=== PATIENT | female | born 1975 | race Caucasian/White ===

== ENCOUNTER 2017-04-13 15:00 | Emergency (ER) | payer OTHER ==
[~2017-04-13] VITALS: Ht 175.3 cm; Wt 71.3 kg
[~2017-04-13 15:00] MED LIST: PRED20 PO; VENTAER INH
[2017-04-13 15:06] VITALS: BP 95/62; PULSE 74; RESP 16; TEMP 98.2; O2SAT 97
[2017-04-13] MEDS ORDERED: KETOROLAC TROMETHAMINE 60 MG/2 ML (IM) VIAL IM ONE (15:30)
[2017-04-13] MEDS ORDERED: ORPHENADRINE INJ 60 MG/2 ML AMP IM ONE (15:30)
--- NOTE | 2017-04-13 15:43 | PD ---
HPI . Right upper back pain Chief Complaint: Musculoskeletal Complaint Time Seen by Provider: 15:31 Travel History International Travel<30 days: No Contact w/Intl Traveler<30days: No Traveled to known affect area: No History of Present Illness HPI 42-year-old female presents to emergency department for evaluation of right upper back pain that she woke up with this morning. Patient denies any trauma or injury. Patient states she thought she slept funny and it would resolve throughout the day. Patient took an Advil this morning to relieve the pain. Patient states that Advil was effective but is wearing off at this time. Patient denies any other physiological symptoms. Patient denies chest pain, fever, cough, chills, malaise or lightheadedness. The pain does not limit her range of motion. Patient states the only relieving factor besides the Motrin is stretching. Patient denies any major medical history. She is not currently on any medications. She has no known allergies. PFSH Past Medical History Anxiety: Yes Diminished Hearing: No Tetanus Vaccination: Unknown Influenza Vaccination: Yes ?: Not LMP: 04/10/2017 Past Surgical History Abdominal Surgery: Yes (ABDOMINOPLASTY) Section: Yes (2) Eye Surgery: Yes (PRK) Gynecologic Surgery: Yes (2 C-SECTIONS) Social History Alcohol Use: Yes (OCCAS) Tobacco Use: No Substance Use: No Allergies-Medications (Allergen,Severity, Reaction): Coded Allergies: No Known Allergies (Unverified , 04/13/17) Reported Meds & Prescriptions Reported Meds & Active Scripts Active Ventolin Hfa (Albuterol Sulfate) 18 Gm Aero 2 Puff INH Q6 * SHAKE WELL BEFORE USE * Deltasone (Prednisone) 20 Mg Tab 20 Mg PO DAILY Review of Systems Except as stated in HPI: all other systems reviewed are Neg Musculoskeletal: Positive: Pain (right upper back pain) Physical Exam Narrative GENERAL: Well-nourished, well-developed 42-year-old female patient in no acute distress. Nontoxic appearing. SKIN: Focused skin assessment warm/dry. HEAD: Normocephalic. Atraumatic EYES: No scleral icterus. No injection or drainage. NECK: Supple, trachea midline. No JVD or lymphadenopathy. CARDIOVASCULAR: Regular rate and rhythm without murmurs, gallops, or rubs. RESPIRATORY: Breath sounds equal bilaterally. No accessory muscle use. MUSCULOSKELETAL: Increased tension on the right lateral aspect of the trapezius muscle noted. No cyanosis, or edema. BACK: Nontender without obvious deformity. No CVA tenderness. Data Data Last Documented VS Vital Signs Date Time Temp Pulse Resp B/P (MAP) Pulse Ox O2 Delivery O2 Flow Rate FiO2 04/13/17 15:06 98.2 74 16 95/62 (73) 97 Orders Orders Orphenadrine Inj (Norflex Inj) (04/13/17 15:30) Ketorolac Inj (Toradol Inj) (04/13/17 15:30) [facility] Medical Decision Making Medical Screen Exam Complete: Yes Emergency Medical Condition: Yes Differential Diagnosis Differential diagnoses include but not limited to muscle spasms, muscular contusion to upper back, muscle cramp in upper back Narrative Course Well-nourished well-developed 42-year-old female presents to the emergency department with complaint of pain to upper back that she woke up with. She denies any trauma or injury. Patient thought she slept in a different position that caused the pain. There is increased tension noted to the right lateral aspect of the trapezius muscle in the upper back. However the tension does not decreased range of motion. Patient states the pain is improved with stretching. Based on patient's symptoms, clinical presentation, vital sign review and physical exam it is not necessary to admit the patient to the hospital or keep the patient in the emergency department for further evaluation. Patient will be discharged home. Patient will be given 60 mg IM orphenadrine and 30 mg IM ketorolac and discharged home. Patient will be given instructions to continue stretching, use heat therapy, stay hydrated and use [id number] Motrin. Diagnosis Primary Impression: Upper back pain on right side Referrals: Primary Care Physician Patient Instructions: Back Pain (ED), General Instructions Additional Instructions: Please return to emergency department if your symptoms return or worsen. Follow up with your primary care provider. May use heating pads for 20 minutes on and 20 minutes off. May use [id number] Motrin as needed for pain. Disposition: 01 DISCHARGE HOME Condition: Stable America Keller JT Apr 13, 2017 15:43
== END 2017-04-13 15:56 | disposition home or self-care (01) ==
LOC: PHEFT 15:00
DX: M54.89 Other dorsalgia (principal); F41.9 Anxiety disorder, unspecified
CPT/HCPCS: 96372; 99284; J1885; J2360

== ENCOUNTER 2017-07-11 15:49 | Emergency (ER) | payer OTHER ==
[~2017-07-11] VITALS: Ht 172.7 cm; Wt 71.8 kg
[2017-07-11 15:55] VITALS: BP 99/56; PULSE 89; RESP 18; TEMP 99.4; O2SAT 94
[2017-07-11] MEDS ORDERED: EPINEPHrine HCL (1:1000) 1 MG/ML VIAL ONE (15:55)
[2017-07-11] MEDS ORDERED: EPINEPHrine HCL (1:1000) 1 MG/ML VIAL IM ONE (16:00)
[2017-07-11] MEDS ORDERED: FAMOTIDINE 20 MG/2 ML VIAL IV PUSH ONE (16:00)
[2017-07-11] MEDS ORDERED: methylPREDNISolone SOD SUCC 125 MG/2 ML VIAL IV PUSH ONE (16:00)
[2017-07-11] MEDS ORDERED: diphenhydrAMINE HCL 50 MG/ML VIAL IVP ONE (16:00)
[2017-07-11] MEDS: SODIUM CHLORIDE 0.9% FLUSH 10 ML FLUSH IV FLUSH PRN ×2 (16:02→17:27)
[2017-07-11 16:09] VITALS: O2SAT 99
[2017-07-11] MEDS ORDERED: VENL75XR PO (16:16)
[2017-07-11 16:49] VITALS: BP 94/55; PULSE 92; RESP 18; O2SAT 98
--- NOTE | 2017-07-11 16:54 | PD ---
HPI Chief Complaint: Allergic/Adverse Reaction Time Seen by Provider: 15:54 Travel History International Travel<30 days: No Contact w/Intl Traveler<30days: No Traveled to known affect area: No History of Present Illness HPI 42-year-old female came to the emergency room with history of allergic reaction. Patient says that she has been noticing hives that are itchy all over her body since past 4-5 days. She is unsure of the reason of these hives. She is on Venlafaxine but has been taking it for past 4 months. The symptoms has not started to past 4-5 days ago. Today she noticed that her lips and started to swell up and around her eyes. She also started feeling some itchiness of the back of her throat when she decided to come to the emergency room. Patient had taken 50 mg of Benadryl prior to coming in. She was slightly hypertensive upon arrival. No history of cough or chest tightness. PFSH Past Medical History Narrative Medical List of her past medical, surgical, social and family history is reviewed from the nursing note. Anxiety: Yes Diminished Hearing: No ?: Not Past Surgical History Abdominal Surgery: Yes (ABDOMINOPLASTY) Section: Yes (2) Eye Surgery: Yes (PRK) Gynecologic Surgery: Yes (2 C-SECTIONS) Social History Alcohol Use: Yes (OCCAS) Tobacco Use: No Substance Use: No Allergies-Medications (Allergen,Severity, Reaction): Coded Allergies: No Known Allergies (Unverified Adverse Reaction, Unknown, 07/11/17) Comments No known drug allergies. Reported Meds & Prescriptions Reported Meds & Active Scripts Active Benadryl Allergy (Diphenhydramine HCl) 25 Mg Cap 1 Cap PO Q6HR 3 Days Prednisone 20 Mg Tab 20 Mg PO BID 5 Days Reported Effexor XR 24 HR (Venlafaxine HCl) 75 Mg Cap 75 Mg PO DAILY Narrative Medication List of her home medications reviewed from the nursing note. Review of Systems Except as stated in HPI: all other systems reviewed are Neg Physical Exam Narrative GENERAL: Awake, alert, moderate distress SKIN: Focused skin assessment warm/dry. HEAD: Atraumatic. Normocephalic. EYES: Pupils equal and round. No scleral icterus. No injection or drainage. ENT: No nasal bleeding or discharge. Mucous membranes pink and moist. Angioedema of her lower lips and bilateral medial canthus. Posterior pharynx and soft palate appears to be erythematous and slightly swollen. NECK: Trachea midline. No JVD. No stridor CARDIOVASCULAR: Regular rate and rhythm. No murmur appreciated. RESPIRATORY: No accessory muscle use. Clear to auscultation. Breath sounds equal bilaterally. GASTROINTESTINAL: Abdomen soft, non-tender, nondistended. Hepatic and splenic margins not palpable. MUSCULOSKELETAL: No obvious deformities. No clubbing. No cyanosis. No edema. NEUROLOGICAL: Awake and alert. No obvious cranial nerve deficits. Motor grossly within normal limits. Normal speech. PSYCHIATRIC: Appropriate mood and affect; insight and judgment normal. Data Data Last Documented VS Orders Orders Ecg Monitoring (07/11/17 15:54) Iv Access Insert/Monitor (07/11/17 15:54) Oximetry (07/11/17 15:54) Diphenhydramine Inj (Benadryl Inj) (07/11/17 16:00) Methylprednisolone So Succ Inj (Solumedr (07/11/17 16:00) Famotidine Inj (Pepcid Inj) (07/11/17 16:00) Sodium Chloride 0.9% Flush (Ns Flush) (07/11/17 16:00) Epinephrine (1:1000) Inj (Adrenalin (1:1 (07/11/17 16:00) Epinephrine (1:1000) Inj (Adrenalin (1:1 (07/11/17 15:55) Sodium Chlor 0.9% 1000 Ml Inj (Ns 1000 M (07/11/17 17:45) MDM Medical Decision Making Medical Screen Exam Complete: Yes Emergency Medical Condition: Yes Medical Record Reviewed: Yes Interpretation(s) Twelve-lead EKG was reviewed by me. Normal sinus rhythm, normal axis, nonspecific ST-T wave changes. Heart rate of 84 bpm. Differential Diagnosis Allergic reaction, injured his Narrative Course 5:39 PM given her severity of the upper airway reaction I chose to give her epinephrine along with IV Benadryl, Solu-Medrol and famotidine. Currently patient feels much better. I will observe her for another hour and then discharged if she continues to do okay. Procedures EKG Prior to Arrival: No Diagnosis Primary Impression: Allergic reaction Qualified Codes: T78.40XA - Allergy, unspecified, initial encounter Additional Impression: Angioedema Qualified Codes: T78.3XXA - Angioneurotic edema, initial encounter Referrals: Primary Care Physician 2 days Additional Instructions: Please return to the ER if the condition worsens or any other new concerns. Otherwise follow-up with your primary care and have them refer you to an oil program compliance specialist so that skin the skin be done to find out exactly which is allergic to. Also talked to the physician who started you on Venlafaxine so that a different medication can be started on. Med/Other Pt SpecificInfo: Prescription(s) given Scripts Diphenhydramine HCl (Benadryl Allergy) 25 Mg Cap 1 CAP PO Q6HR for 3 Days Prov: Sully Jang MD 07/11/17 Prednisone (Prednisone) 20 Mg Tab 20 MG PO BID for 5 Days, #10 TAB 0 Refills Prov: Sully Jang MD 07/11/17 Disposition: 01 DISCHARGE HOME Condition: Stable Sully Jang MD Jul 11, 2017 16:54
[2017-07-11] MEDS ORDERED: BENA25CA4 PO (17:42)
[2017-07-11] MEDS ORDERED: PRED20 PO (17:42)
[2017-07-11] MEDS ORDERED: SODIUM CHLOR 0.9% 1000 ML INJ 1,000 ML IV ONE (17:45)
[2017-07-11 19:15] VITALS: BP_SYST 157; BP_SYST 94; BP_DIAS 61; BP_DIAS 87
== END 2017-07-11 19:39 | disposition home or self-care (01) ==
LOC: PHED 15:49
DX: T78.40XA Allergy, unspecified, initial encounter (principal); T78.3XXA Angioneurotic edema, initial encounter; I10 Essential (primary) hypertension; F41.9 Anxiety disorder, unspecified
CPT/HCPCS: 96361; 96372; 96374; 96375; 99284; J0171; J1200; J2930; J7030

== ENCOUNTER 2017-07-19 12:41 | Emergency (ER) | payer OTHER ==
[~2017-07-19 12:41] MED LIST changes: +BENA25CA4 PO; +VENL75XR PO; -VENTAER INH
[2017-07-19 12:46] VITALS: BP 98/71; PULSE 95; RESP 16; TEMP 98.5; O2SAT 100
[2017-07-19] MEDS ORDERED: SODIUM CHLOR 0.9% 1000 ML INJ 1,000 ML IV SCH (13:42)
[2017-07-19] MEDS ORDERED: methylPREDNISolone SOD SUCC 125 MG/2 ML VIAL IV PUSH ONE (13:45)
[2017-07-19] MEDS ORDERED: EPINEPHrine HCL (1:1000) 1 MG/ML VIAL IM ONE (13:45)
[2017-07-19] MEDS ORDERED: FAMOTIDINE 20 MG/2 ML VIAL IV PUSH ONE (13:45)
[2017-07-19] MEDS ORDERED: SODIUM CHLORIDE 0.9% FLUSH 10 ML FLUSH IV FLUSH PRN (13:45)
[2017-07-19] MEDS ORDERED: diphenhydrAMINE HCL 50 MG/ML VIAL IVP ONE (13:45)
[2017-07-19 14:07] VITALS: BP 86/58; PULSE 77; RESP 16; O2SAT 98
[2017-07-19 14:09] VITALS: O2SAT 98
--- NOTE | 2017-07-19 14:12 | PD ---
HPI Chief Complaint: Allergic/Adverse Reaction Time Seen by Provider: 13:42 Travel History International Travel<30 days: No Contact w/Intl Traveler<30days: No Traveled to known affect area: No History of Present Illness HPI 42-year-old female patient with recent history of allergic reaction to Effexor, presents back to the ER today because she states that she was eating pasta when she started getting lip swelling, facial swelling, and feels that there is a lump in her throat. She denies any chest pains, shortness of breath, or any other symptoms. She states that this is similar to the reaction she had last week. She denies any previous history of allergic reaction to pasta. Modifying Factors: None Associated Signs & Symptoms: Allergic reaction Risk Factors: Recent history of allergic reaction PFSH Past Medical History Anxiety: Yes Diminished Hearing: No ?: Not LMP: 07/19/17 Past Surgical History Abdominal Surgery: Yes (ABDOMINOPLASTY) Section: Yes (2) Eye Surgery: Yes (PRK) Gynecologic Surgery: Yes (2 C-SECTIONS) Social History Alcohol Use: Yes (OCCAS) Tobacco Use: No Substance Use: No Allergies-Medications (Allergen,Severity, Reaction): Coded Allergies: No Known Allergies (Verified Adverse Reaction, Unknown, 07/19/17) Reported Meds & Prescriptions Reported Meds & Active Scripts Active Review of Systems Except as stated in HPI: all other systems reviewed are Neg Physical Exam Narrative GENERAL: Well-developed middle age female patient currently in mild distress. Awake and oriented 3. SKIN: Focused skin assessment warm/dry. HEAD: Atraumatic. Normocephalic. There is notable lip edema. EYES: Pupils equal and round. No scleral icterus. No injection or drainage. ENT: Mucosa pink and moist. No erythema or exudates. No uvular edema. No uvular , palatal, or tonsillar deviation. Airway patent. NECK: Trachea midline. No JVD. No obvious edema or swelling. CARDIOVASCULAR: Regular rate and rhythm. No murmur appreciated. RESPIRATORY: No accessory muscle use. Clear to auscultation. Breath sounds equal bilaterally. No wheezing. GASTROINTESTINAL: Abdomen soft, non-tender, nondistended. Hepatic and splenic margins not palpable. MUSCULOSKELETAL: No obvious deformities. No clubbing. No cyanosis. No edema. NEUROLOGICAL: Awake and alert. No obvious cranial nerve deficits. Motor grossly within normal limits. Normal speech. PSYCHIATRIC: Appropriate mood and affect; insight and judgment normal. Data Data Last Documented VS Vital Signs Date Time Temp Pulse Resp B/P (MAP) Pulse Ox O2 Delivery O2 Flow Rate FiO2 07/19/17 15:10 87 16 91/54 (66) 98 Room Air 07/19/17 12:46 98.5 Orders Orders Ecg Monitoring (07/19/17 13:42) Iv Access Insert/Monitor (07/19/17 13:42) Oximetry (07/19/17 13:42) Diphenhydramine Inj (Benadryl Inj) (07/19/17 13:45) Methylprednisolone So Succ Inj (Solumedr (07/19/17 13:45) Famotidine Inj (Pepcid Inj) (07/19/17 13:45) Sodium Chlor 0.9% 1000 Ml Inj (Ns 1000 M (07/19/17 13:42) Sodium Chloride 0.9% Flush (Ns Flush) (07/19/17 13:45) Epinephrine (1:1000) Inj (Adrenalin (1:1 (07/19/17 13:45) MDM Medical Decision Making Medical Screen Exam Complete: Yes Emergency Medical Condition: Yes Medical Record Reviewed: Yes Differential Diagnosis Allergic reaction Narrative Course Patient was given Benadryl, Zantac, IV fluids, epinephrine, and site matter on the ER. On reevaluation an hour later, her symptoms are subsiding and blood pressures improved. At this point, it is unclear what is causing her allergic reactions. She is doing well and after several hours of observation the ER, plan would be to release her follow-up to primary care physician. Return for any worsening in symptoms as needed. She should carry epinephrine with her at all times. The plan was discussed with her and she states understanding. Diagnosis Primary Impression: Allergic reaction Med/Other Pt SpecificInfo: Prescription(s) given Scripts Prednisone (Prednisone) 50 Mg Tab 50 MG PO DAILY for 3 Days, #3 TAB 0 Refills Prov: France Gonzalez MD 07/19/17 Diphenhydramine HCl (Benadryl Allergy) 25 Mg Tablet 25 MG PO QID Y for ALLERGIC REACTION, #20 Prov: France Gonzalez MD 07/19/17 Epinephrine Inj (Epinephrine Inj) 0.15 Mg/0.3 Ml Inj 0.3 MG SQ DIRECTED, #1 INJECTION 0 Refills Prov: France Gonzalez MD 07/19/17 Disposition: 01 DISCHARGE HOME Condition: Stable France Gonzalez MD Jul 19, 2017 14:12
[2017-07-19 15:10] VITALS: BP 91/54; PULSE 87; RESP 16; O2SAT 98
[2017-07-19] MEDS ORDERED: EPIN1INJ24 SQ (16:51)
[2017-07-19] MEDS ORDERED: PRED50 PO (16:51)
[2017-07-19] MEDS ORDERED: BENA25TA6 PO (16:51)
[2017-07-19 17:10] VITALS: BP 92/58
== END 2017-07-19 17:12 | disposition home or self-care (01) ==
LOC: PHED 12:41
DX: T78.40XA Allergy, unspecified, initial encounter (principal); Z86.59 Personal history of other mental and behavioral disorders; X58.XXXA Exposure to other specified factors, initial encounter
CPT/HCPCS: 96361; 96372; 96374; 96375; 99284; J0171; J1200; J2930; J7030